=== PATIENT | female | born 1990 | race Caucasian/White ===

== ENCOUNTER 2022-10-14 12:20 | Inpatient (IN) | payer MEDICAID ==
[~2022-10-14] VITALS: Ht 170.2 cm; Wt 106.1 kg
[2022-10-14] MEDS ORDERED: NALOXONE HCL 0.4 MG/ML 1ML VIAL IM PRN ×2 (16:00→19:00)
[2022-10-14] MEDS ORDERED: METHYLERGONOVINE MALEATE 0.2 MG/ML IM PRN (16:00)
[2022-10-14] MEDS ORDERED: BUTORPHANOL TARTRATE 2 MG/ML VIAL IV PRN (16:00)
[2022-10-14] MEDS ORDERED: LIDOCAINE HCL 1% 20ML VIAL (Pyxis) INJ INFIL SCH ×2 (16:00→19:00)
[2022-10-14] MEDS: LACTATED RINGERS 1,000 ML IV SCH ×3 (16:27→23:58)
[2022-10-14] MEDS ORDERED: PENICILLIN G POTASSIUM 5 MMU in DEXT 5% WATER 100 ML IV SCH (16:30)
[2022-10-14 18:09] LABS: CLARITY URINE CLEAR (CLEAR); COLOR URINE YELLOW (YELLOW); KETONES URINE TRACE (NEGATIVE); LEUKOCYTE ESTERASE URINE NEGATIVE (NEGATIVE); NITRITE URINE NEGATIVE (NEGATIVE); OCCULT BLOOD URINE NEGATIVE (NEGATIVE); PROTEIN URINE NEGATIVE (NEGATIVE); SPECIFIC GRAVITY URINE 1.009 (1.005-1.030)
[2022-10-14 18:14] LABS: BASOPHILS % 0.3 % (0.0-2.0); EOSINOPHILS % 0.5 % (0.0-5.0); HEMOGLOBIN. 11.3 g/dL (12.0-16.0); LYMPHOCYTES % 15.4 % (20.0-50.0); MEAN CORPUSCULAR HEMOGLOBIN 28.1 pg (28.0-32.0); MEAN CORPUSCULAR VOLUME 84.7 fL (81.0-99.0); MEAN PLATELET VOLUME 9.1 fl (7.4-10.4); MONOCYTES % 10.2 % (2.0-8.0); NEUTROPHILS % 73.6 % (40.0-76.0); PLATELET 205 x1000/uL (130-400); RED BLOOD CELL COUNT 4.01 mill/uL (4.2-5.4); RED CELL DISTRIBUTION WIDTH 14.5 % (11.6-14.6)
[2022-10-14 18:19] LABS: *AMPHETAMINES SCREEN URINE NEGATIVE (NEGATIVE); *BARBITURATES SCREEN URINE NEGATIVE (NEGATIVE); *BENZODIAZEPINES SCREEN URINE NEGATIVE (NEGATIVE); *COCAINE SCREEN URINE NEGATIVE (NEGATIVE); CANNABINOID URINE SCREEN NEGATIVE (NEGATIVE); METHADONE URINE SCREEN NEGATIVE (NEGATIVE); OPIATES URINE SCREEN NEGATIVE (NEGATIVE); PHENCYCLIDINE URINE SCREEN NEGATIVE (NEGATIVE)
[2022-10-14 18:48] LABS: INR 0.9; PARTIAL THROMBOPLASTIN TIME 30.5 sec (23.4-31.0); PROTHROMBIN TIME 9.8 sec (9.6-11.0)
[2022-10-14] MEDS ORDERED: MISOPROSTOL 100MCG TABLET VG SCH (19:00)
[2022-10-14] MEDS ORDERED: DEXT 5%/LACTATED RINGERS 1,000 ML IV SCH (19:00)
[2022-10-14] MEDS: MISOPROSTOL 100MCG TABLET VG SCH (19:54)
[2022-10-14] MEDS ORDERED: PENICILLIN G POTASSIUM 2.5 MMU in DEXTROSE 5% WATER 50 ML IV SCH (20:30)
[2022-10-15] MEDS: MISOPROSTOL 100MCG TABLET VG SCH ×2 (04:33)
[2022-10-15] MEDS: LACTATED RINGERS 1,000 ML IV SCH (07:46)
[2022-10-15] MEDS: OXYTOCIN 30 UNITS/500ML NS PMX 500 ML IV SCH ×2 (09:21→09:39)
[2022-10-15] MEDS ORDERED: RHO(D) IMMUNE GLOBULIN 300 MCG/SYR IM PRN (09:30)
[2022-10-15] MEDS ORDERED: MISOPROSTOL 200MCG TABLET PO NR (09:30)
[2022-10-15] MEDS ORDERED: IBUPROFEN 400MG TABLET PO PRN (09:30)
[2022-10-15] MEDS ORDERED: OXYTOCIN 30 UNITS/500ML NS PMX 500 ML IV SCH (09:30)
[2022-10-15] MEDS ORDERED: MISOPROSTOL 200MCG TABLET ONE (12:53)
[2022-10-15] MEDS: IBUPROFEN 800MG TABLET PO PRN ×2 (13:38→21:18)
[2022-10-15] MEDS: LANOLIN OINT 7GM TUBE TOP PRN ×2 (13:38→21:18)
[2022-10-15 13:40] VITALS: BP 99/60
[2022-10-15 14:30] VITALS: BP 102/62
[2022-10-15 15:40] VITALS: BP 111/61
[2022-10-15] MEDS ORDERED: TETANUS, DIPHTHERIA, PERTUSSIS VAC/PF 0.5ML (>10YR OLD) IM ONE (19:00)
[2022-10-15] MEDS ORDERED: INFLUENZA VACCINE 05/PF 0.5 ML SYRINGE IM ONE (19:00)
[2022-10-15 19:59] LABS: HEPATITIS B SURFACE ANTIGEN NEGATIVE
[2022-10-15 20:00] VITALS: BP 105/57
[2022-10-16] MEDS: IBUPROFEN 800MG TABLET PO PRN (03:08)
[2022-10-16 04:00] VITALS: BP 122/53
[2022-10-16 07:03] LABS: BASOPHILS % 0.4 % (0.0-2.0); EOSINOPHILS % 1.1 % (0.0-5.0); HEMATOCRIT. 26.9 % (36.0-48.0); HEMOGLOBIN. 9.1 g/dL (12.0-16.0); LYMPHOCYTES % 22.6 % (20.0-50.0); MEAN CORPUSCULAR HEMOGLOBIN 28.4 pg (28.0-32.0); MEAN CORPUSCULAR VOLUME 84.1 fL (81.0-99.0); MONOCYTES % 9.3 % (2.0-8.0); NEUTROPHILS % 66.6 % (40.0-76.0); PLATELET 180 x1000/uL (130-400); RED CELL DISTRIBUTION WIDTH 14.4 % (11.6-14.6)
[2022-10-16 08:00] VITALS: BP 101/56
[2022-10-16 08:13] LABS: HIV SCREEN 4G Non Reactive (Non Reactive)
[2022-10-16] MEDS: PRENATAL VIT/FE FUMARATE/FA TABLET PO SCH (08:44)
[2022-10-16 16:00] VITALS: BP 115/63
[2022-10-16 20:00] VITALS: BP 116/69
[2022-10-17 03:00] VITALS: BP 117/62
[2022-10-17 08:00] VITALS: BP 110/71
[2022-10-17] MEDS: PRENATAL VIT/FE FUMARATE/FA TABLET PO SCH (08:28)
== END 2022-10-17 13:55 | disposition home or self-care (01) | DRG 560 ==
LOC: 8 EST LDRP 12:20 → OBSVTOIN 12:50 → 8EST 10-15 18:38
PROVIDERS: ADMIT Obstetrics & Gynecology; ATTEND Obstetrics & Gynecology
PROC: 10E0XZZ Delivery of Products of Conception, External Approach (ICD-10-PCS; principal; 2022-10-15)
DX: O60.14X0 Preterm labor third trimester with preterm delivery third trimester, not applicable or unspecified (principal); Z37.0 Single live birth; O36.8130 Decreased fetal movements, third trimester, not applicable or unspecified; Z20.822 Contact with and (suspected) exposure to COVID-19; O99.02 Anemia complicating childbirth; Z3A.36 36 weeks gestation of pregnancy
CPT/HCPCS: 36415; 76805; 76818; 80305; 81003; 85025; 86592; 86762; 86850; 86900; 87340; 87389; 87426; 90686; 90715; 99281; G0378; J0595; J2540; J7060; J7120; J2590